=== PATIENT | female | born 1990 | race Caucasian/White ===

== ENCOUNTER 2023-10-18 17:28 | Observation (INO) | payer MEDICAID ==
--- NOTE | 2023-10-18 17:40 | ED Physician Documentation ---
PD HPI ABD PAIN - Stated complaint Stated Complaint: ABD PX - Chief complaint Chief Complaint: Abd Pain - History obtained from History obtained from: Patient - History of Present Illness Timing - onset: How many hours ago (Onset this morning with steady worsening through the day of right abdominal pain kind of mid abdomen but more up than lower.), Today Timing - details: Gradual onset, Still present (increased severity through the day. No change in location nor character.) Quality: Cramping, Aching, Pain Location: RUQ (to right mid abdomen, around to right flank.) Radiation: Right flank Improved by: Laying still Worsened by: Moving, Breathing, Palpation Associated symptoms: Nausea, Vomiting (several times.), Diarrhea (loose stool movement once this afternoon.). 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 ) Other Past Medical History: POTS - Past Surgical History Past Surgical History: No - Allergies Allergies/Adverse Reactions: Allergies Allergy/AdvReac Type Severity Reaction Status Date / Time No Known Drug Allergies Allergy Verified 10/18/23 17:32 - Social History Does the pt smoke?: No Smoking Status: Never smoker Does the pt drink ETOH?: Yes Does the pt have substance abuse?: No - Immunizations Immunizations are current?: Yes PD ED PE NORMAL - Vitals Vital signs reviewed: Yes - General General: Alert and oriented X 3, Well developed/nourished, Other (appears in pain due to right mid to upper abd. ) - Neck Neck: Supple, no meningeal sign, No adenopathy - Cardiac Cardiac: RRR, No murmur - Respiratory Respiratory: No respiratory distress, Clear bilaterally - Abdomen Abdomen: Normal bowel sounds, Soft, Non distended, Other (Tender markedly right abdomen mid area but more to upper than lower abd. ) - Female Female : Deferred - Rectal Rectal: Deferred - Back Back: Other (right flank tender to percussion mildly. No rash nor sores. ) - Derm Derm: Normal color, Warm and dry - Neuro Neuro: Alert and oriented X 3, No motor deficit, Normal speech Results - Vitals Vitals: Vital Signs - 24 hr 10/18/23 10/18/23 10/18/23 17:32 20:14 21:36 Temperature 36.6 C Heart Rate 88 92 92 Respiratory 16 20 16 Rate Blood Pressure 110/80 109/70 123/72 O2 Saturation 99 95 95 Oxygen O2 Source Room air - Labs Labs: Laboratory Tests 10/18/23 10/18/23 10/18/23 18:03 18:03 18:10 WBC 15.3 H RBC 4.69 Hgb 14.1 Hct 42.2 MCV 90.0 MCH 30.1 MCHC 33.4 RDW 11.9 L Plt Count 290 MPV 9.4 Neut # (Auto) 13.7 H Lymph # (Auto) 1.0 L [place] # (Auto) 0.5 Eos # (Auto) 0.0 Baso # (Auto) 0.1 Absolute Nucleated RBC 0.00 Nucleated RBC % 0.0 Sodium 136 Potassium 3.5 Chloride 101 Carbon Dioxide 25 Anion Gap 10.0 BUN 11 Creatinine 0.7 Estimated GFR (MDRD) 96 Glucose 136 H Calcium 9.6 Total Bilirubin 0.4 AST 22 ALT 54 Alkaline Phosphatase 89 Total Protein 7.6 Albumin 4.8 Globulin 2.8 Albumin/Globulin Ratio 1.7 Lipase 15 Urine Color YELLOW Urine Clarity CLEAR Urine pH 7.0 Ur Specific [place] 1.020 Urine Protein TRACE Urine Glucose (UA) NEGATIVE Urine Ketones 15 H Urine Occult Blood NEGATIVE Urine Nitrite NEGATIVE Urine Bilirubin NEGATIVE Urine Urobilinogen 0.2 (NORMAL) Ur Leukocyte Esterase NEGATIVE Ur Microscopic Review NOT INDICATED Urine Culture Comments NOT INDICATED Urine HCG, Qual NEGATIVE PD Medical Decision Making - ED course Complexity details: re-evaluated patient, considered differential (Onset of right abdominal pain progressively worse over the day. Does radiate to the flank but progression seems less likely stone. Consider UTI or Xander. Also consider colitis or gallbladder. Could also be a retrocecal appendix. Will get CBC and chemistry as well as urine. Also CT abd/pelvis.), d/w patient Drug Therapy Requiring Monitoring for Toxicity: She was given IV fluids along with antiemetic and pain medicine. Toradol as w ell. Pain has improved moderately. Awaiting labs and CT. Change of shift will be soon and care will be given to the oncoming ED physician. Departure - Departure Disposition: ED Transfer to [facility] Clinical Impression: Appendicitis, Right sided abdominal pain Condition: Stable
[2023-10-18 18:07] LABS: BASOPHILS # (AUTO) 0.1 10^3/uL (0.0-0.1); BASOPHILS % (AUTO) 0.3 %; HCT - HEMATOCRIT 42.2 % (37.0-47.0); HGB - HEMOGLOBIN 14.1 g/dL (12.0-16.0); LYMPHOCYTES % (AUTO) 6.5 %; MEAN CORPUSCULAR HEMOGLOBIN 30.1 pg (27.0-31.0); MEAN CORPUSCULAR HGB CONC 33.4 g/dL (32.0-36.0); MEAN PLATELET VOLUME 9.4 fL (7.9-10.8); MONOCYTES # (AUTO) 0.5 10^3/uL (0.0-1.0); MONOCYTES % (AUTO) 3.3 %; NEUTROPHILS # (AUTO) 13.7 10^3/uL (1.5-6.6); NEUTROPHILS % (AUTO) 89.5 %; PLT - PLATELET COUNT 290 10^3/uL (130-450); RED BLOOD COUNT 4.69 10^6/uL (4.20-5.40); RED CELL DISTRIBUTION WIDTH 11.9 % (12.0-15.0); WHITE BLOOD COUNT 15.3 x10^3/uL (4.8-10.8)
[2023-10-18] MEDS: SODIUM CHLORIDE 0.9% 1,000 ML IV STA (18:15)
[2023-10-18] MEDS: HYDROmorphone 1 MG/ML CARPUJECT IVP STA (18:17)
[2023-10-18] MEDS: KETOROLAC 15 MG/ML VIAL IVP STA (18:17)
[2023-10-18] MEDS: ONDANSETRON 4 MG/2 ML VIAL IVP STA (18:17)
[2023-10-18 18:21] LABS: ALBUMIN 4.8 g/dL (3.2-5.5); ALBUMIN/GLOBULIN RATIO 1.7 (1.0-2.2); BILIRUBIN,TOTAL 0.4 mg/dL (0.2-1.0); CALCIUM 9.6 mg/dL (8.5-10.3); CREATININE 0.7 mg/dL (0.6-1.3); POTASSIUM 3.5 mmol/L (3.5-4.5); TOTAL PROTEIN 7.6 g/dL (6.4-8.9)
[2023-10-18] MEDS ORDERED: iohexoL-300 100 ML VIAL ONE (18:21)
[2023-10-18 19:05] LABS: BILIRUBIN,URINE NEGATIVE (NEGATIVE); GLUCOSE, URINE (UA) NEGATIVE (NEGATIVE); KETONES,URINE (UA) 15 mg/dL (NEGATIVE); LEUKOCYTE ESTERASE, URINE NEGATIVE (NEGATIVE); NITRITE,URINE NEGATIVE (NEGATIVE); OCCULT BLOOD,URINE NEGATIVE (NEGATIVE); PROTEIN,URINE TRACE mg/dL (NEGATIVE); UROBILINOGEN,URINE 0.2 (NORMAL) E.U./dL (NORMAL)
[2023-10-18 19:06] LABS: CLARITY,URINE CLEAR (CLEAR); HCG UR QUAL NEGATIVE
--- NOTE | 2023-10-18 19:13 | CT Report ---
PROCEDURE: Abdomen/Pelvis W INDICATIONS: RLQ Abdominal pain, appendicitis suspected CONTRAST: Omni 300 100ml TECHNIQUE: After the administration of intravenous contrast, a CT scan of the abdomen and pelvis was performed. Images were recorded and evaluated at appropriate window settings. Reformats: coronal and sagittal. F or radiation dose reduction, the following was used: automated exposure control, adjustment of mA and /or kV according to patient size. COMPARISON: None. FINDINGS: Image quality: Diagnostic. Lower chest: Unremarkable. Liver: No solid mass. Decreased attenuation, consistent with hepatic steatosis. Gallbladder: No radiopaque stones or wall thickening. Biliary tree: No intrahepatic or extrahepatic dilation, accounting for age. Spleen: No splenomegaly. Pancreas: No pancreatic ductal dilation. Adrenals: No adrenal nodule. Kidneys and ureters: No hydronephrosis. No renal cystic lesion which requires follow up. No solid mas s. Stomach, bowel and peritoneum: No gastric or small bowel dilation. No abnormal wall thickening. No pa thologic free fluid. Dilated appendix measuring up to 1.6 cm with mild surrounding inflammation. The appendix is fluid-filled with a thickened wall. Lymph nodes: No central or retroperitoneal adenopathy. Vessels: No infrarenal aortic aneurysm. Patent portal vein. PELVIS Reproductive organs: Unremarkable. Bladder: No abnormal wall thickening, accounting for underdistention. Pelvic lymph nodes: No pelvic adenopathy by size criteria. Bones: No aggressive osseous abnormality. Other: No significant ventral or inguinal hernia. IMPRESSION: 1.Acute uncomplicated appendicitis. 2.Hepatic steatosis. Reviewed by: Nas Hitchcock MD on 10/18/2023 7:12 PM PDT Approved by: Nas Hitchcock MD on 10/18/2023 7:12 PM PDT Station ID: [id number]
--- NOTE | 2023-10-18 19:36 | ED Physician Documentation ---
ED Addendum - Addendum Addendum: 10/18/23 19:30 Patient with acute uncomplicated appendicitis on CT. d/w surgeon Dr. Barros who will operate. Disposition - admit to [facility] Impression 1. abdominal pain 2. acute appendicitis Condition stable
[2023-10-18] MEDS: PIPERACILLIN/TAZOBACTAM 3.375 GM in SODIUM CHLORIDE 0.9% MINIBAG 100 ML IV STA (19:45)
[2023-10-18] MEDS ORDERED: ONDANSETRON 4 MG/2 ML VIAL IVP PRN (19:47)
[2023-10-18] MEDS ORDERED: METOCLOPRAMIDE 10 MG/2 ML VIAL IVP PRN (19:47)
[2023-10-18] MEDS: HYDROmorphone 0.5 MG/0.5 ML SYRINGE IVP PRN ×2 (20:07→21:42)
[2023-10-18] MEDS ORDERED: SODIUM CHLORIDE FLUSH 0.9% 10 ML SYRINGE IVP PRN (20:08)
[2023-10-18] MEDS ORDERED: PROCHLORPERAZINE 10 MG/2 ML VIAL IVP PRN (20:08)
[2023-10-18] MEDS: LACTATED RINGERS 1,000 ML IV SCH (20:27)
[2023-10-18] MEDS: iohexoL-300 100 ML VIAL IVP ONE (20:37)
[2023-10-18] MEDS ORDERED: PIPERACILLIN/TAZOBACTAM 3.375 GM in SODIUM CHLORIDE 0.9% MINIBAG 100 ML IV SCH (21:00)
[2023-10-18] MEDS ORDERED: HYDROmorphone 0.5 MG/0.5 ML SYRINGE IVP PRN (21:53)
[2023-10-18] MEDS: diphenhydrAMINE 25 MG CAPSULE PO STA (22:01)
[2023-10-18] MEDS: ONDANSETRON 4 MG/2 ML VIAL IVP PRN (22:27)
[2023-10-18] MEDS: HYDROmorphone 1 MG/ML CARPUJECT IVP PRN (22:27)
[2023-10-18] MEDS: KETOROLAC 15 MG/ML VIAL IVP PRN (22:33)
[2023-10-18] MEDS: D5.45NS W/20 MEQ KCL 1,000 ML IV SCH (22:47)
[2023-10-19] MEDS: SODIUM CHLORIDE FLUSH 0.9% 10 ML SYRINGE IVP SCH (01:00)
[2023-10-19] MEDS: ACETAMINOPHEN 325 MG TABLET PO PRN (02:34)
[2023-10-19] MEDS: PIPERACILLIN/TAZOBACTAM 3.375 GM in SODIUM CHLORIDE 0.9% MINIBAG 100 ML IV SCH (04:27)
--- NOTE | 2023-10-19 11:03 | PHARMACY PROGRESS NOTE ---
- Best Possible Medication History Admit Date and Time: 10/18/23 2081 Processed by: Pharmacy Medications reviewed in ED?: No Medication History completed: Yes Patient Interview: Completed Secondary Source(s): Pharmacy records, Insurance records As the person ultimately responsible for medication therapy, providers are able to order a medication from an existing home medication list in [facility] via the "Reconcile Routine" prior to Confirmation of that medication by senior administrative support. Such practice is discouraged except when the physician, in their clinical judgment, deems that a medical need exists for a medication without regard to previous use.
--- NOTE | 2023-10-19 11:25 | ANESTHESIA ---
Pre-Anesthesia VS, & Labs - Diagnosis Appendicitis - Procedure Lap Appendectomy Vital Signs: Temp Pulse Resp BP Pulse Ox O2 Flow Rate 36.6 C 61 16 99/52 L 98 10/19/23 07:23 10/19/23 07:23 10/19/23 07:23 10/19/23 07:23 10/19/23 07:23 Height: 5 ft 7 in Weight (kg): 85.5 kg Body Mass Index: 29.5 BMI Classification: Overweight - NPO >8 hours - Is Patient ?: No - Lab Results Current Lab Results: Laboratory Tests 10/18/23 18:03: Sodium 136, Potassium 3.5, Chloride 101, Carbon Dioxide 25, Anion Gap 10.0, BUN 11, Creatinine 0.7, Estimated GFR (MDRD) 96, Glucose 136 H, Calcium 9.6, Total Bilirubin 0.4, AST 22, ALT 54, Alkaline Phosphatase 89, Total Protein 7.6, Albumin 4.8, Globulin 2.8, Albumin/Globulin Ratio 1.7, Lipase 15 10/18/23 18:03: WBC 15.3 H, RBC 4.69, Hgb 14.1, Hct 42.2, MCV 90.0, MCH 30.1, MCHC 33.4, RDW 11.9 L, Plt Count 290, MPV 9.4, Neut # (Auto) 13.7 H, Lymph # (Auto) 1.0 L, [place] # (Auto) 0.5, Eos # (Auto) 0.0, Baso # (Auto) 0.1, Absolute Nucleated RBC 0.00, Nucleated RBC % 0.0 Fish Bones: 10/18/23 18:03 10/18/23 18:03 Home Medications and Allergies Home Medications: Ambulatory Orders Acetaminophen [Tylenol] 1,000 mg PO Q6H PRN 10/19/23 Citalopram Hydrobromide [Citalopram HBr] 40 mg PO DAILY 10/19/23 Estradiol [Estrace] 1 gm VG ONCE 10/19/23 Famotidine [Pepcid] 20 mg PO DAILY 10/19/23 Loratadine [Claritin] 10 mg PO DAILY 10/19/23 Metformin HCl [Metformin ER Osmotic] 500 mg PO DAILY 10/19/23 Ondansetron Odt [Zofran Odt] 4 mg TL Q6H PRN 10/19/23 Active Medications Acetaminophen (Acetaminophen 325 Mg Tablet) 650 mg PO Q6H PRN PRN Reason: Mild Pain or Fever>38C(100.4F) Last Admin: 10/19/23 02:34 Dose: 650 mg Acetaminophen (Acetaminophen 325 Mg Tablet) 650 mg PO Q4HR PRN PRN Reason: Pain 1 to 4, or Fever Hydromorphone HCl (Hydromorphone 1 Mg/Ml Carpuject) 1 mg IVP Q2HR PRN PRN Reason: Severe Pain (Level 7-10) Last Admin: 10/19/23 07:30 Dose: 1 mg Potassium Chloride/Dextrose/Sod Cl (D5.45ns W/20 Meq Kcl) 1,000 mls @ 125 mls/hr IV .Q8H [facility] Last Admin: 10/19/23 09:08 Dose: 125 mls/hr Piperacillin Sod/Tazobactam (Sod 3.375 gm/ Sodium Chloride) 100 mls @ 25 mls/hr IV Q8H [facility] Last Infusion: 10/19/23 09:08 Dose: Infused Ketorolac Tromethamine (Ketorolac 15 Mg/Ml Vial) 15 mg IVP Q6H PRN PRN Reason: Severe Pain (Level 7-10) Stop: 10/23/23 19:46 Last Admin: 10/19/23 10:14 Dose: 15 mg Ondansetron HCl (Ondansetron 4 Mg/2 Ml Vial) 4 mg IVP Q6HR PRN PRN Reason: Nausea / Vomiting Last Admin: 10/19/23 10:41 Dose: 4 mg Prochlorperazine Edisylate (Prochlorperazine 10 Mg/2 Ml Vial) 10 mg IVP Q6HR PRN PRN Reason: Nausea / Vomiting Sodium Chloride (Sodium Chloride Flush 0.9% 10 Ml Syringe) 10 ml IVP PRN PRN PRN Reason: NEEDED PER PROVIDER ORDERS Sodium Chloride (Sodium Chloride Flush 0.9% 10 Ml Syringe) 10 ml IVP 0100,0900,1700 [facility] Last Admin: 10/19/23 09:30 Dose: Not Given Acetaminophen [Tylenol] 1,000 mg PO Q6H PRN 10/19/23 Citalopram Hydrobromide [Citalopram HBr] 40 mg PO DAILY 10/19/23 Estradiol [Estrace] 1 gm VG ONCE 10/19/23 Famotidine [Pepcid] 20 mg PO DAILY 10/19/23 Loratadine [Claritin] 10 mg PO DAILY 10/19/23 Metformin HCl [Metformin ER Osmotic] 500 mg PO DAILY 10/19/23 Ondansetron Odt [Zofran Odt] 4 mg TL Q6H PRN 10/19/23 Allergies/Adverse Reactions: Allergies Allergy/AdvReac Type Severity Reaction Status Date / Time No Known Drug Allergies Allergy Verified 10/18/23 17:32 Anes History & Medical History - Anesthetic History Anesthesia Complications: reports: No previous complications Family history of Anesthesia Complications: Denies Family history of Malignant Hyperthermia: Denies - Medical History Cardiovascular: reports: None, Other Pulmonary: reports: None Gastrointestinal: reports: GERD Urinary: reports: None Neuro: reports: None Musculoskeletal: reports: None Endocrine/Autoimmune: reports: Other (Prediabetic) Blood Disorders: reports: None Skin: reports: Eczema Smoking Status: Never smoker Psychosocial: reports: Alcohol, Other (2 Glasses of wine per month) History of Cancer?: No 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
[2023-10-19] MEDS ORDERED: BUPIVACAINE 0.25% PF 30 ML VIAL ONE (12:05)
[2023-10-19] MEDS ORDERED: PROPOFOL 200 MG/20 ML VIAL IVP ONE (13:59)
[2023-10-19] MEDS ORDERED: fentaNYL 100 MCG/2 ML VIAL ONE ×2 (13:59→18:28)
[2023-10-19] MEDS ORDERED: MIDAZOLAM 2 MG/2 ML VIAL ONE (13:59)
[2023-10-19] MEDS ORDERED: LIDOCAINE-PF 2% 10 ML AMP SUBQ ONE (14:00)
[2023-10-19] MEDS ORDERED: ROCURONIUM 50 MG/5 ML VIAL ONE (14:00)
--- NOTE | 2023-10-19 16:04 | HISTORY & PHYSICAL EXAMINATION ---
Chief Complaint - Chief Complaint Chief Complaint: deep right mid back pain History of Present Illness - Admitted From Admitted From:: ed - History Obtained From Records Reviewed: yes History obtained from: pt Exam Limitations: none - History of Present Illness HPI Comment/Other: seen in ED yesterday. n/v abdominal pain. had similar pain [address] scan enlarged retrocecal appendix with minimal inflammation. she had eaten just prior to coming to the ED. 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 - Past Surgical History Cardiovascular: reports: Other (POTS, palpitations from POTS) Meds/Allgy - Home Medications Home Medications: Ambulatory Orders Medication Instructions Recorded Confirmed Acetaminophen [Tylenol] 1,000 mg PO Q6H PRN 10/19/23 10/19/23 Citalopram Hydrobromide 40 mg PO DAILY 10/19/23 10/19/23 [Citalopram HBr] Estradiol [Estrace] 1 gm VG ONCE 10/19/23 10/19/23 Famotidine [Pepcid] 20 mg PO DAILY 10/19/23 10/19/23 Loratadine [Claritin] 10 mg PO DAILY 10/19/23 10/19/23 Metformin HCl [Metformin ER 500 mg PO DAILY 10/19/23 10/19/23 Osmotic] Ondansetron Odt [Zofran Odt] 4 mg TL Q6H PRN 10/19/23 10/19/23 - Allergies Allergies/Adverse Reactions: Allergies Allergy/AdvReac Type Severity Reaction Status Date / Time No Known Drug Allergies Allergy Verified 10/18/23 17:32 Review of Systems - Other Findings Other Findings: 10 pt ros as above otherwise unremarkable Exam - Vital Signs Vital Signs: Vital Signs x48h Temp Pulse Resp BP BP Pulse Ox 10/19/23 15:40 36.7 C 61 18 114/67 95 10/19/23 12:08 36.7 C 58 L 16 107/65 97 - Physical Exam General Appearance: positive: No acute distress, Alert Eyes Bilateral: positive: PERRL, EOMI Neck: positive: No JVD, Trachea midline Respiratory: positive: No respiratory distress Abdomen: positive: Non-tender, No distention Neurologic/Psychiatric: positive: Oriented x3 Conclusion/Plan - Problem List (1) Appendicitis Conclusion/Plan: discussed options of antibiotics alone vs surgery. she prefers surgery. parq held and consent obtained - Lab Results Fish Bones: 10/18/23 18:03 10/18/23 18:03 - Diagnostic Imaging Results Diagnostic Imaging Results: positive: Read independently
[2023-10-19] MEDS ORDERED: HYDROmorphone 0.5 MG/0.5 ML SYRINGE IVP PRN ×2 (17:12→19:07)
[2023-10-19] MEDS ORDERED: ATROPINE ABBOJECT 1 MG/10 ML SYRINGE IVP PRN (17:12)
[2023-10-19] MEDS ORDERED: MORPHINE 2 MG/ML CARPUJECT IVP PRN (17:12)
[2023-10-19] MEDS ORDERED: ePHEDrine 50 MG/ML VIAL IVP PRN (17:12)
[2023-10-19] MEDS ORDERED: NALOXONE 0.4 MG/ML VIAL IVP PRN (17:12)
[2023-10-19] MEDS ORDERED: METOCLOPRAMIDE 10 MG/2 ML VIAL IVP PRN (17:12)
[2023-10-19] MEDS ORDERED: fentaNYL 100 MCG/2 ML VIAL IVP PRN (17:12)
[2023-10-19] MEDS: BUPIVACAINE 0.25% PF 30 ML VIAL SUBQ ONE (17:57)
[2023-10-19] MEDS ORDERED: LACTATED RINGERS 1,000 ML IV SCH (18:00)
[2023-10-19] MEDS ORDERED: DEXAMETHASONE 4 MG/ML VIAL ONE (18:09)
[2023-10-19] MEDS ORDERED: ONDANSETRON 4 MG/2 ML VIAL ONE ×2 (18:09→19:39)
[2023-10-19] MEDS ORDERED: GLYCOPYRROLATE 1 MG/5 ML VIAL ONE (18:15)
[2023-10-19] MEDS ORDERED: SUGAMMADEX 200 MG/2 ML VIAL IVP ONE (18:24)
[2023-10-19] MEDS ORDERED: HYDROcod/ACETAM 5/325 MG TABLET PO PRN (19:07)
[2023-10-19] MEDS ORDERED: ONDANSETRON 4 MG/2 ML VIAL IVP PRN (19:07)
[2023-10-19] MEDS: LACTATED RINGERS 400 ML IV ONE (19:11)
--- NOTE | 2023-10-19 19:18 | OPERATIVE REPORT ---
Operative Report - General Admit Date: 10/18/23 Procedure Date: 10/19/23 Planned Procedure: lap appy Pre-Op Diagnosis: acute appendicitis Procedure Performed: lap appy Post Op Diagnosis: acute appendicitis - Procedure Note Primary Surgeon: luke hancock Anesthesia Technique: General ET tube, Local Pathology: appendix Estimated Blood Loss (mL): 5 Drain/Tube Type: Other (none) Indications: appendicitis with recurrent symptoms Findings: acute appendicitis Complications: none - Other Other Information/Narrative: The patient was properly identified brought to the operating room and placed in supine position. The patient was previously given antibiotics. Sequential compression devices were placed. General endotracheal anesthesia was induced. The patient was prepped and draped in a sterile fashion. Local anesthetic was given to incision areas. An infraumbilical incision was made in and proceeded down to the fascia. The fascia was incised lifted upwards and abdomen entered with a Veress needle. CO2 was insufflated to a pressure of 15. A 12 mm trocar was placed with 30 degree scope. There was no evidence of injury from Veress needle or trocar placement. Under direct vision a 5 mm trocar was placed suprapubic and a 5 mm trocar was placed in the right upper quadrant. Appendix was identified and retracted anteriorly. Peritoneal attachments were taken down with careful use of cautery. Appendix was mobilized more anterior. A plane was then created between the mesoappendix and the appendix at the cecum. Appendix was divided with an Endo ADDI intestinal load to include up a small portion of the cecum. The mesoappendix was then divided with an Endo ADDI vascular load. There was secure closure at the cecum and hemostasis was assured. The appendix was brought out. The abdomen was thoroughly irrigated and hemostasis again assured. Trochars were removed under direct vision. Fascia at the infraumbilic al site was closed with a running 0 Vicryl suture. Subcutaneous tissue was irrigated and skin reapproximated with buried interrupted 4-0 Monocryl. Dressings were applied. The patient tolerated the procedure well was awakened and brought to recovery in good condition.
[2023-10-19] MEDS: ACETAMINOPHEN 1,000 MG/100 ML 1,000 MG/100 ML BAG IV ONE ×2 (19:30→20:21)
[2023-10-19] MEDS: ONDANSETRON 4 MG/2 ML VIAL IVP PRN (19:38)
[2023-10-19] MEDS: D5.45NS W/20 MEQ KCL 1,000 ML IV SCH (20:47)
[2023-10-19] MEDS: FAMOTIDINE 20 MG TABLET PO SCH (21:53)
[2023-10-19] MEDS: LORATADINE 10 MG TABLET PO PRN (22:29)
[2023-10-20] MEDS: ACETAMINOPHEN 325 MG TABLET PO PRN (04:07)
[2023-10-20] MEDS ORDERED: ZINC OXIDE 12% OINT 57 GM TUBE TOP PRN (04:29)
[2023-10-20] MEDS: BENZOCAINE/MENTHOL LOZENGE MM PRN (04:40)
--- NOTE | 2023-10-20 05:05 | ANESTHESIA POST OP EVALUATION ---
Anesthesia Post Eval - Post Anesthesia Eval Vitals: Last Vital Signs Temp 36.5 C 10/20/23 04:06 Pulse 68 10/20/23 04:06 Resp 18 10/20/23 04:06 BP 109/71 10/20/23 04:06 Pulse Ox 97 10/20/23 04:06 O2 Flow Rate CV Function Including HR & BP: Stable Pain Control: Satisfactory Nausea & Vomiting: Negative Mental Status: Baseline Respiratory Status: Airway Patent Hydration Status: Satisfactory Anesthesia Complications: None
[2023-10-20 08:09] VITALS: O2SAT 100
[2023-10-20] MEDS: CITALOPRAM HYDROBROMIDE 20 MG TABLET PO SCH (08:48)
[2023-10-20 16:15] VITALS: BP 124/64
--- NOTE | 2023-10-25 07:58 | PROVIDER PROGRESS NOTE ---
Objective - Lab Results Fish Bones: 10/18/23 18:03 10/18/23 18:03 Assessment/Plan - Problem List (1) Appendicitis Impression: patient went home afternoon following surgery. not seen home in good condition. tolerating diet, afebrile
== END 2023-10-20 16:30 | disposition home or self-care (01) ==
LOC: ED 17:28 → MS2 21:51
PROVIDERS: ADMIT Surgery; ATTEND Surgery
PROC: 0DTJ4ZZ Resection of Appendix, Percutaneous Endoscopic Approach (ICD-10-PCS; principal; 2023-10-18)
DX: K35.80 Unspecified acute appendicitis (principal); R73.03 Prediabetes
CPT/HCPCS: 36415; 44970; 74177; 80053; 81003; 81025; 83690; 85025; 96365; 96375; 96376; 99283; 99285; A9270; J0131; J1170; J7120; J8499; Q9967; 81001; 87086